=== PATIENT | female | born 1970 | race Caucasian/White ===

== ENCOUNTER 2017-01-17 19:26 | Emergency (ER) | payer MEDICAID ==
[~2017-01-17] VITALS: Ht 157.5 cm; Wt 86.0 kg
[2017-01-17] MEDS ORDERED: KETOROLAC 30MG/ML VIAL IM ONE (23:15)
[2017-01-17] MEDS ORDERED: CYCLOBENZAPRINE 10MG TABLET PO ONE (23:15)
[2017-01-18 00:05] VITALS: BP 141/78
== END 2017-01-18 00:35 | disposition home or self-care (01) ==
LOC: ER 22:57
DX: M54.5 Low back pain (principal); G89.29 Other chronic pain; E03.9 Hypothyroidism, unspecified; I95.9 Hypotension, unspecified; Z98.890 Other specified postprocedural states
CPT/HCPCS: 81025; 96372; 99283; J1885

== ENCOUNTER 2017-12-10 03:52 | Emergency (ER) | payer MEDICAID ==
[~2017-12-10] VITALS: Ht 167.6 cm; Wt 73.0 kg
[2017-12-10] MEDS ORDERED: ASPIRIN 81MG TABLET PO ONE (05:15)
[2017-12-10 05:33] LABS: BASOPHILS % 0.6 % (0.0-2.0); EOSINOPHILS % 1.5 % (0.0-5.0); HEMATOCRIT. 38.5 % (36.0-48.0); HEMOGLOBIN. 13.1 g/dL (12.0-16.0); LYMPHOCYTES % 26.6 % (20.0-50.0); MEAN CORPUSCULAR HEMOGLOBIN 31.4 pg (28.0-32.0); MEAN CORPUSCULAR VOLUME 92.2 fL (81.0-99.0); MEAN PLATELET VOLUME 9.7 fl (7.4-10.4); MONOCYTES % 5.8 % (2.0-8.0); NEUTROPHILS % 65.5 % (40.0-76.0); PLATELET 228 x1000/uL (130-400); RED BLOOD CELL COUNT 4.18 mill/uL (4.2-5.4); RED CELL DISTRIBUTION WIDTH 14.9 % (11.6-14.6)
[2017-12-10 05:40] LABS: CHLORIDE 104 mEq/L (98-107)
[2017-12-10 05:45] LABS: ETHANOL BLOOD < 10 mg/dL
[2017-12-10 05:55] LABS: CLARITY URINE CLEAR (CLEAR); COLOR URINE YELLOW (YELLOW); KETONES URINE NEGATIVE (NEGATIVE); LEUKOCYTE ESTERASE URINE NEGATIVE (NEGATIVE); NITRITE URINE NEGATIVE (NEGATIVE); OCCULT BLOOD URINE 1+ (NEGATIVE); PH URINE 5.5 (4.5-8.0); PROTEIN URINE NEGATIVE (NEGATIVE); SPECIFIC GRAVITY URINE 1.017 (1.005-1.030); UROBILINOGEN URINE 0.2 E.U./dL (0.2-1.0)
[2017-12-10 06:05] LABS: HCG SCREEN NEGATIVE
[2017-12-10 06:23] LABS: *AMPHETAMINES SCREEN URINE NEGATIVE (NEGATIVE); *BARBITURATES SCREEN URINE NEGATIVE (NEGATIVE); *COCAINE SCREEN URINE NEGATIVE (NEGATIVE); METHADONE URINE SCREEN NEGATIVE (NEGATIVE)
[2017-12-10 06:24] LABS: *BENZODIAZEPINES SCREEN URINE NEGATIVE (NEGATIVE); CANNABINOID URINE SCREEN NEGATIVE (NEGATIVE); OPIATES URINE SCREEN NEGATIVE (NEGATIVE); PHENCYCLIDINE URINE SCREEN NEGATIVE (NEGATIVE)
[2017-12-10] MEDS ORDERED: KETOROLAC 15MG/ML VIAL IV ONE (06:30)
[2017-12-10] MEDS ORDERED: IOHEXOL-350 100 ML BOTTLE ONE (12:04)
[2017-12-10 13:10] VITALS: BP 140/71
== END 2017-12-10 13:19 | disposition home or self-care (01) ==
LOC: ER 03:52
DX: R07.89 Other chest pain (principal); I95.9 Hypotension, unspecified; E03.9 Hypothyroidism, unspecified
CPT/HCPCS: 36415; 71045; 71275; 80053; 80305; 81003; 83690; 83880; 84484; 84703; 85025; 85379; 93005; 96374; 99285; G0482; J1885; Q9967